=== PATIENT | female | born 1955 | race Caucasian/White ===

== ENCOUNTER → 2017-03-19 00:28 | Emergency (ER) | payer BC ==
[~2017-03-19 00:28] MED LIST: Morphine INJ* 2 MG/ML 1 ML SYRINGE IV ONE; NS 0.9% 1000 ML* 1,000 ML IV ONE; diPHENhydraMINE IV* 50 MG/ML 1 ml VIAL (BENADRYL) IV ONE
--- NOTE | 2017-03-19 00:48 | ED ---
darrick Simeon Timothy, scribed for Sam Huber MD on 03/19/17 at 0043 . Abdominal Pain/Female - HPI Summary HPI Summary: Ange Antoine is a 61 yo female presenting to [facility] with 10/10 right abd pain since 0800 03/18/17. 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 She states her pain increases with movement and position change. She states her appetite today has not been great. She has self-medicated with tylenol today. Her MHx includes HLD, angina, HTN, fibromyalgia, asthma, GERD, cholecystectomy, hysterectomy, DMII, anemia, depression, anxiety. - History of Current Complaint Chief Complaint: EDAbdPain Stated Complaint: RIGHT SIDE PAIN Time Seen by Provider: 03/19/17 00:29 Hx Obtained From: Patient Onset/Duration: Gradual Onset, Lasting Hours, Still Present, Worse Since - now Timing: Constant Severity Initially: Moderate Severity Currently: Moderate Pain Intensity: 10 Pain Scale Used: 0-10 Numeric Location: Discrete At: RUQ, Discrete At: RLQ Radiates: No Aggravating Factor(s): Movement, Deep Breaths Associated Signs and Symptoms: Positive: Other: - change in appetite Allergies/Adverse Reactions: Allergies Allergy/AdvReac Type Severity Reaction Status Date / Time Procaine [From Novocain] Allergy Severe N/V, Verified 09/26/16 13:38 SYNCOPE contrast dyes Allergy Severe Hives Uncoded 09/26/16 13:38 PMH/Surg Hx/FS Hx/Imm Hx Endocrine/Hematology History: Reports: Hx Diabetes - TYPE II- ORAL MEDICATION AND INSULIN FOR, Hx Thyroid Disease - ON MEDICATION FOR, Hx Anemia - HX OF Cardiovascular History: Reports: Hx Angina, Hx Hypercholesterolemia, Hx Hypertension - ON MEDICATION FOR, Other Cardiovascular Problems/Disorders - ELEVATED CHOLESTEROL Denies: Hx Pacemaker/ICD Respiratory History: Reports: Hx Asthma - ROUTINE AND PRN INHALER Denies: Hx Chronic Obstructive Pulmonary Disease (COPD), Other Respiratory Problems/Disorders GI History: Reports: Hx Gastroesophageal Reflux Disease - ON MEDICATION FOR History: Denies: Hx Renal Disease Musculoskeletal History: Reports: Hx Arthritis - FINGERS Sensory History: Reports: Hx Cataracts - RIGHT EYE, Hx Contacts or Glasses - GLASSES Denies: Hx Hearing Aid Opthamlomology History: Reports: Hx Cataracts - RIGHT EYE, Hx Contacts or Glasses - GLASSES Neurological History: Reports: Hx Headaches - INDUCED BY STRESS- WEEKLY-TREATS WITH HYDROCODONE, Other Neuro Impairments/Disorders - FIBROMYLAGIA Psychiatric History: Reports: Hx Anxiety - ON MEDICATION FOR, Hx Depression - ON MEDICATION FOR Denies: Hx Panic Disorder - Cancer History Hx Chemotherapy: No Hx Radiation Therapy: No - Surgical History Surgery Procedure, Year, and Place: cysts removed bilat feet [facility]. knee L bone spurs [facility]. hyste[facility]. [facility]. APPENDECTOMY. RIGHT AND LEFT KNEE REPAIR OF CARTILAGE Hx Anesthesia Reactions: No Infectious Disease History: No Infectious Disease History: Denies: Hx Clostridium Difficile, Hx Hepatitis, Hx Human Immunodeficiency Virus (HIV), Hx of Known/Suspected MRSA, Hx Shingles, Hx Tuberculosis, History Other Infectious Disease, Traveled Outside the in Last 30 Days - Family History Known Family History: Positive: Cardiac Disease - FATHER HAD 10 MIs BEFORE PASSING AWAY, Hypertension, Diabetes - Social History Alcohol Use: Occasionally Hx Substance Use: No Substance Use Type: Reports: None Hx Tobacco Use: No Smoking Status (MU): Former Smoker Amount Used/How Often: 2 PPD X 25 YEARS Length of Time of Smoking/Using Tobacco: 20 yrs Have You Smoked in the Last Year: No Review of Systems Constitutional: Negative Eyes: Negative ENT: Negative Cardiovascular: Negative Respiratory: Negative Positive: Abdominal Pain, Other - change in appetite Genitourinary: Negative Musculoskeletal: Negative Skin: Negative Neurological: Negative Psychological: Normal All Other Systems Reviewed And Are Negative: Yes Physical Exam Triage Information Reviewed: Yes Vital Signs On Initial Exam: Initial Vitals Temp Pulse Resp BP Pulse Ox 98.5 F 111 20 157/80 98 03/19/17 00:31 03/19/17 00:31 03/19/17 00:31 03/19/17 00:31 03/19/17 00:31 Vital Signs Reviewed: Yes Appearance: Positive: Well-Appearing, Pain Distress - mild lower abd tenderness Skin: Positive: Warm Head/Face: Positive: Normal Head/Face Inspection Eyes: Positive: DIMITRY ENT: Positive: Hearing grossly normal Neck: Positive: Supple Cardiovascular: Positive: RRR Abdomen Description: Positive: No Organomegaly, Soft, Other: - mild diffuse lower abd tenderness rt>lt. Negative: Distended, Guarding Bowel Sounds: Positive: Present Musculoskeletal: Positive: Strength/ROM Intact Neurological: Positive: Alert, Oriented to Person Place, Time Psychiatric: Positive: Affect/Mood Appropriate Diagnostics - Vital Signs Vital Signs Temp Pulse Resp BP Pulse Ox 03/19/17 00:31 98.5 F 111 20 157/80 98 - Laboratory Result Diagrams: 03/19/17 00:50 03/19/17 00:50 Lab Statement: Any lab studies that have been ordered have been reviewed, and results considered in the medical decision making process. - CT A/P CT Interpretation: No Acute Changes - Impression: Mild fullness of the right renal collecting system and proximal right ureter may be physiologic or may be slightly pathologically distended. No obstructing calculus seen. No inflammatory process identified in the abdomen or pelvis. No abd mass, adenopathy, or collection seen. 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 In the ED course she received morphine for pain control, benadryl, and IV fluids. Her CT A/P suggests mild fullness of the right renal collecting system and proximal right ureter may be physiologic or may be slightly pathologically distended. No obstructing calculus seen. No inflammatory process identified in the abdomen or pelvis. No abd mass, adenopathy, or collection seen. After clinical examination and review of her lab and imaging studies, she will be discharged home with abd pain with appropriate instructions. - Diagnoses Provider Diagnoses: Abdominal pain Discharge - Discharge Plan Condition: Stable Disposition: HOME Patient Education Materials: Acute Abdominal Pain (ED) Referrals: Arianna Cain MD [Primary Care Provider] - 2 Days Additional Instructions: Please follow up with your primary care physician regarding your visit to the emergency department today. Return to the emergency department with any new or recurring symptoms. The documentation as recorded by the darrick draper Timothy accurately reflects the service I personally performed and the decisions made by , Sam Huber MD.
[2017-03-19 01:04] LABS: Hematocrit 37 % (35-47); Hemoglobin 12.7 g/dl (12.0-16.0); Mean Corpuscular HGB Conc 34 g/dl (31-36); Mean Corpuscular Hemoglobin 29 pg (27-31); Mean Corpuscular Volume 85 fL (80-97); Mean Platelet Volume 7 um3 (7.4-10.4); Red Blood Count 4.38 10^6/ul (4.0-5.4); Red Cell Distribution Width 13 % (10.5-15); White Blood Count 10.5 10^3/ul (3.5-10.8)
[2017-03-19 01:22] LABS: ALT 21 U/L (7-52); AST 23 U/L (13-39); Albumin 4.5 g/dL (3.2-5.2); Alkaline Phosphatase 64 U/L (34-104); Anion Gap 10 mmol/L (2-11); Blood Urea Nitrogen 12 mg/dL (6-24); CO2 Carbon Dioxide 25 mmol/L (22-32); Calcium 10.2 mg/dL (8.6-10.3); Chloride 96 mmol/L (101-111); EGFR African American 123.6 (>60); EGFR Non-African American 96.1 (>60); Globulin 3.3 g/dL (2-4); Glucose 261 mg/dL (70-100); Lipase < 10 U/L (11.0-82.0); Magnesium 1.8 mg/dL (1.9-2.7); Potassium 3.9 mmol/L (3.5-5.0); Sodium 131 mmol/L (133-145); Total Protein 7.8 g/dL (6.4-8.9)
[2017-03-19 03:21] LABS: Urine Bilirubin Negative (Negative); Urine Glucose 2+(150 mg/dL) (Negative); Urine Nitrite Negative (Negative)
[2017-03-19 03:39] VITALS: BP 161/69
--- NOTE | 2017-03-19 08:00 | RAD ---
CLINICAL HISTORY: Lower abdominal pain. Relevant surgical history includes appendectomy, hysterectomy and cholecystectomy. COMPARISON: CT of the chest and abdomen dated October 21, 2013 TECHNIQUE: Oral contrast only CT examination of the abdomen and pelvis from the lung bases through the initial tuberosities. FINDINGS: VISUALIZED LUNG BASES: The visualized lung bases are grossly clear. There is no pleural effusion. ABDOMEN AND PELVIS: Evaluation of the solid organs and vasculature is limited without intravenous contrast. The liver is homogenously hypodense and enlarged measuring 21.4 cm in the cephalocaudal projection. The spleen, pancreas and adrenal glands are grossly normal in appearance. The gallbladder is normal. There is the appearance of fullness of the right renal collecting system but no luisana hydronephrosis or renal calculi identified in either renal collecting system, ureter or urinary bladder. There is also right greater than left perinephric stranding but this appearance is similar to the 2014 CT examination. The oral contrast has progressed as far as the midportion small bowel. There is a appearance of thickening of the second portion of the duodenum up to 1.2 cm in thickness (axial image 41) that extends to the junction with the jejunum. The small and large bowel are not distended.The patient's normal appendix is identified in the right lower quadrant. There is no gross retroperitoneal or mesenteric lymphadenopathy. The uterus is surgically absent. The mildly calcified abdominal aorta and iliac arteries are normal in course and diameter. Degenerative changes include multilevel loss of intervertebral disc height involving the lower thoracic and lumbar spine.There are no sinister bone lesions. IMPRESSION: 1. Mild fullness of the right renal collecting system without luisana hydronephrosis or identification of renal calculi bilaterally. 2. There appears to be circumferential wall thickening of the second portion of the duodenum extending to the junction with the jejunum. Please correlate to symptoms of duodenitis. 3. Hepatic steatosis and hepatomegaly similar to the previous CT examination. Please correlate to LFTs. 4. Additional chronic, degenerative and iatrogenic findings described in the body of the report.
== END | disposition home or self-care (01) ==
LOC: ED 00:28
DX: R10.11 Right upper quadrant pain (principal); R10.31 Right lower quadrant pain; E11.9 Type 2 diabetes mellitus without complications; Z79.4 Long term (current) use of insulin; Z79.84 Long term (current) use of oral hypoglycemic drugs; E07.9 Disorder of thyroid, unspecified; E78.00 Pure hypercholesterolemia, unspecified; I10 Essential (primary) hypertension; J45.909 Unspecified asthma, uncomplicated; K21.9 Gastro-esophageal reflux disease without esophagitis; F41.9 Anxiety disorder, unspecified; F32.9 Major depressive disorder, single episode, unspecified; Z90.710 Acquired absence of both cervix and uterus; Z90.49 Acquired absence of other specified parts of digestive tract; Z88.4 Allergy status to anesthetic agent; Z91.041 Radiographic dye allergy status; Z87.891 Personal history of nicotine dependence
CPT/HCPCS: 36415; 74176; 80053; 81003; 83605; 83690; 83735; 85025; 86140; 96361; 96374; 96375; 99282; J1200; J2270

== ENCOUNTER 2017-03-20 14:47 | Emergency (ER) | payer BC ==
[2017-03-20] MEDS ORDERED: NS 0.9% 1000 ML* 1,000 ML IV ONE (15:47)
[2017-03-20] MEDS ORDERED: HYDROmorphone* 1 MG/ML 1 ML SYR IV ONE (15:47)
[2017-03-20] MEDS ORDERED: Sucralfate TAB* 1 GM PO ONE (15:47)
[2017-03-20] MEDS ORDERED: Ondansetron INJ* 2 MG/ML VIAL IV ONE (15:47)
[2017-03-20] MEDS ORDERED: Pantoprazole IV* 40 MG IV ONE (15:47)
[2017-03-20 16:39] LABS: Hematocrit 39 % (35-47); Hemoglobin 13.2 g/dl (12.0-16.0); Mean Corpuscular HGB Conc 34 g/dl (31-36); Mean Corpuscular Hemoglobin 29 pg (27-31); Mean Corpuscular Volume 85 fL (80-97); Mean Platelet Volume 7 um3 (7.4-10.4); Red Cell Distribution Width 13 % (10.5-15); White Blood Count 9.5 10^3/ul (3.5-10.8)
[2017-03-20 16:44] LABS: Urine Bacteria 1+ (Absent); Urine Bilirubin Negative (Negative); Urine Glucose 3+(>=500 mg/dL) (Negative); Urine Nitrite Negative (Negative)
[2017-03-20 16:56] LABS: ALT 22 U/L (7-52); AST 29 U/L (13-39); Albumin 4.5 g/dL (3.2-5.2); Alkaline Phosphatase 63 U/L (34-104); Anion Gap 9 mmol/L (2-11); BUN/Creatinine Ratio 15.5 (8-20); Blood Urea Nitrogen 11 mg/dL (6-24); C Reactive Protein 83.14 mg/L (< 5.00); CO2 Carbon Dioxide 29 mmol/L (22-32); Chloride 94 mmol/L (101-111); EGFR African American 107.6 (>60); EGFR Non-African American 83.7 (>60); Globulin 3.6 g/dL (2-4); Glucose 182 mg/dL (70-100); Lipase < 10 U/L (11.0-82.0); Potassium 3.4 mmol/L (3.5-5.0); Sodium 132 mmol/L (133-145); Total Protein 8.1 g/dL (6.4-8.9)
--- NOTE | 2017-03-20 18:52 | RAD ---
HISTORY: Redness and swelling COMPARISONS: CT dated March 19, 2017 TECHNIQUE: Multiple transverse and longitudinal ultrasound images were obtained of the area of clinical abnormality in the back using grayscale and color Doppler measuring FINDINGS: There is hyperemia of the subcutaneous fat. There is no loculated fluid collection. IMPRESSION: HYPEREMIA, WITHOUT LOCULATED FLUID COLLECTION TO SUGGEST ABSCESS
[2017-03-20 19:21] VITALS: BP 149/71
--- NOTE | 2017-03-21 09:34 | ED ---
Yordan Simeon Salem, scribed for Velasquez Collado MD on 03/20/17 at 1538 . Abdominal Pain/Female - HPI Summary HPI Summary: Patient is a 61 y/o F who presents to the ED with constant RUQ pain for the past 2 days. Pt was in the ED early yesterday for the same sx. She states she received Morphine while she was here, but was not given medication to take home. Pain has not improved since this past visit. Pt also has an abscess on her back. 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 Her PMHx/PSHx is significant for GERD, cholecystectomy, and hysterectomy. - History of Current Complaint Chief Complaint: EDAbdPain Stated Complaint: LOWER ABD PAIN Time Seen by Provider: 03/20/17 14:49 Hx Obtained From: Patient Onset/Duration: Gradual Onset, Lasting Days, Still Present Timing: Constant Severity Initially: Moderate Severity Currently: Moderate Pain Intensity: 9 Pain Scale Used: 0-10 Numeric Location: Discrete At: RUQ Radiates: No Character: Sharp Aggravating Factor(s): Movement Alleviating Factor(s): Position Associated Signs and Symptoms: Positive: Negative Allergies/Adverse Reactions: Allergies Allergy/AdvReac Type Severity Reaction Status Date / Time Procaine [From Novocain] Allergy Severe N/V, Verified 09/26/16 13:38 SYNCOPE contrast dyes Allergy Severe Hives Uncoded 09/26/16 13:38 PMH/Surg Hx/FS Hx/Imm Hx Endocrine/Hematology History: Reports: Hx Diabetes - TYPE II- ORAL MEDICATION AND INSULIN FOR, Hx Thyroid Disease - ON MEDICATION FOR, Hx Anemia - HX OF Cardiovascular History: Reports: Hx Angina, Hx Hypercholesterolemia, Hx Hypertension - ON MEDICATION FOR, Other Cardiovascular Problems/Disorders - ELEVATED CHOLESTEROL Denies: Hx Pacemaker/ICD Respiratory History: Reports: Hx Asthma - ROUTINE AND PRN INHALER Denies: Hx Chronic Obstructive Pulmonary Disease (COPD), Other Respiratory Problems/Disorders GI History: Reports: Hx Gastroesophageal Reflux Disease - ON MEDICATION FOR History: Denies: Hx Renal Disease Musculoskeletal History: Reports: Hx Arthritis - FINGERS Sensory History: Reports: Hx Cataracts - RIGHT EYE, Hx Contacts or Glasses - GLASSES Denies: Hx Hearing Aid Opthamlomology History: Reports: Hx Cataracts - RIGHT EYE, Hx Contacts or Glasses - GLASSES Neurological History: Reports: Hx Headaches - INDUCED BY STRESS- WEEKLY-TREATS WITH HYDROCODONE, Other Neuro Impairments/Disorders - FIBROMYLAGIA Psychiatric History: Reports: Hx Anxiety - ON MEDICATION FOR, Hx Depression - ON MEDICATION FOR Denies: Hx Panic Disorder - Cancer History Hx Chemotherapy: No Hx Radiation Therapy: No - Surgical History Surgery Procedure, Year, and Place: cysts removed bilat feet [facility]. knee L bone spurs removed [facility]. hysterectomy [facility]. [facility]. APPENDECTOMY. RIGHT AND LEFT KNEE REPAIR OF CARTILAGE Hx Anesthesia Reactions: No Infectious Disease History: No Infectious Disease History: Denies: Hx Clostridium Difficile, Hx Hepatitis, Hx Human Immunodeficiency Virus (HIV), Hx of Known/Suspected MRSA, Hx Shingles, Hx Tuberculosis, History Other Infectious Disease, Traveled Outside the [place] in Last 30 Days - Family History Known Family History: Positive: Cardiac Disease - FATHER HAD 10 MIs BEFORE PASSING AWAY, Hypertension, Diabetes - Social History Alcohol Use: Occasionally Hx Substance Use: No Substance Use Type: Reports: None Hx Tobacco Use: No Smoking Status (MU): Former Smoker Amount Used/How Often: 2 PPD X 25 YEARS Length of Time of Smoking/Using Tobacco: 20 yrs Have You Smoked in the Last Year: No Review of Systems Negative: Fever Positive: Abdominal Pain - RUQ. Positive: Other - Abscess on her back. All Other Systems Reviewed And Are Negative: Yes Physical Exam Triage Information Reviewed: Yes Vital Signs On Initial Exam: Initial Vitals Temp Pulse Resp BP Pulse Ox 96.8 F 107 20 167/70 98 03/20/17 14:51 03/20/17 14:51 03/20/17 14:51 03/20/17 14:51 03/20/17 14:51 Vital Signs Reviewed: Yes Appearance: Positive: Well-Appearing, No Pain Distress, Obese Skin: Positive: Warm, Skin Color Reflects Adequate Perfusion, Dry Head/Face: Positive: Normal Head/Face Inspection Eyes: Positive: Normal Neck: Positive: Supple, Nontender Respiratory/Lung Sounds: Positive: Clear to Auscultation, Breath Sounds Present Cardiovascular: Positive: RRR Abdomen Description: Positive: Other: - 8-10cm erythematous area on back with stab center of about 1cm. Tender in epigastrium and RUQ. Musculoskeletal: Positive: Normal Neurological: Positive: Normal Psychiatric: Positive: Normal, Affect/Mood Appropriate Diagnostics - Vital Signs Vital Signs Temp Pulse Resp BP Pulse Ox 03/20/17 14:51 96.8 F 107 20 167/70 98 - Laboratory Lab Results: Lab Results 03/20/17 03/20/17 03/20/17 Range/Units 16:10 16:10 16:10 WBC 9.5 (3.5-10.8) 10^3/ul RBC 4.60 (4.0-5.4) 10^6/ul Hgb 13.2 (12.0-16.0) g/dl Hct 39 (35-47) % MCV 85 (80-97) fL MCH 29 (27-31) pg MCHC 34 (31-36) g/dl RDW 13 (10.5-15) % Plt Count 319 (150-450) 10^3/ul MPV 7 L (7.4-10.4) um3 Neut % (Auto) 64.8 (38-83) % Lymph % (Auto) 21.8 L (25-47) % [place] % (Auto) 12.6 H (1-9) % Eos % (Auto) 0.5 (0-6) % Baso % (Auto) 0.3 (0-2) % Absolute Neuts (auto) 6.2 (1.5-7.7) 10^3/ul Absolute Lymphs (auto) 2.1 (1.0-4.8) 10^3/ul Absolute Monos (auto) 1.2 H (0-0.8) 10^3/ul Absolute Eos (auto) 0.1 (0-0.6) 10^3/ul Absolute Basos (auto) 0 (0-0.2) 10^3/ul Absolute Nucleated RBC 0 10^3/ul Nucleated RBC % 0 Sodium 132 L (133-145) mmol/L Potassium 3.4 L (3.5-5.0) mmol/L Chloride 94 L (101-111) mmol/L Carbon Dioxide 29 (22-32) mmol/L Anion Gap 9 (2-11) mmol/L BUN 11 (6-24) mg/dL Creatinine 0.71 (0.51-0.95) mg/dL Est GFR ( Amer) 107.6 (>60) Est GFR (Non-Af Amer) 83.7 (>60) BUN/Creatinine Ratio 15.5 (8-20) Glucose 182 H (70-100) mg/dL Lactic Acid (0.5-2.0) mmol/L Calcium 10.0 (8.6-10.3) mg/dL Total Bilirubin 0.50 (0.2-1.0) mg/dL AST 29 (13-39) U/L ALT 22 (7-52) U/L Alkaline Phosphatase 63 (34-104) U/L C-Reactive Protein 83.14 H (< 5.00) mg/L Total Protein 8.1 (6.4-8.9) g/dL Albumin 4.5 (3.2-5.2) g/dL Globulin 3.6 (2-4) g/dL Albumin/Globulin Ratio 1.3 (1-3) Lipase < 10 L (11.0-82.0) U/L Urine Color Yellow Urine Appearance Cloudy Urine pH 5.0 (5-9) Ur Specific [place] 1.020 (1.010-1.030) Urine Protein 1+(30 mg/dl) H (Negative) Urine Ketones Negative (Negative) Urine Blood Negative (Negative) Urine Nitrate Negative (Negative) Urine Bilirubin Negative (Negative) Urine Urobilinogen Negative (Negative) Ur Leukocyte Esterase Negative (Negative) Urine WBC (Auto) Absent (Absent) Urine RBC (Auto) Absent (Absent) Ur Squamous Epith Cells Present H (Absent) Urine Bacteria 1+ H (Absent) Hyaline Casts Present H (Absent) Urine Glucose 3+(>=500 mg/dl) H (Negative) 03/20/17 Range/Units 16:10 WBC (3.5-10.8) 10^3/ul RBC (4.0-5.4) 10^6/ul Hgb (12.0-16.0) g/dl Hct (35-47) % MCV (80-97) fL MCH (27-31) pg MCHC (31-36) g/dl RDW (10.5-15) % Plt Count (150-450) 10^3/ul MPV (7.4-10.4) um3 Neut % (Auto) (38-83) % Lymph % (Auto) (25-47) % [place] % (Auto) (1-9) % Eos % (Auto) (0-6) % Baso % (Auto) (0-2) % Absolute Neuts (auto) (1.5-7.7) 10^3/ul Absolute Lymphs (auto) (1.0-4.8) 10^3/ul Absolute Monos (auto) (0-0.8) 10^3/ul Absolute Eos (auto) (0-0.6) 10^3/ul Absolute Basos (auto) (0-0.2) 10^3/ul Absolute Nucleated RBC 10^3/ul Nucleated RBC % Sodium (133-145) mmol/L Potassium (3.5-5.0) mmol/L Chloride (101-111) mmol/L Carbon Dioxide (22-32) mmol/L Anion Gap (2-11) mmol/L BUN (6-24) mg/dL Creatinine (0.51-0.95) mg/dL Est GFR ( Amer) (>60) Est GFR (Non-Af Amer) (>60) BUN/Creatinine Ratio (8-20) Glucose (70-100) mg/dL Lactic Acid 1.6 (0.5-2.0) mmol/L Calcium (8.6-10.3) mg/dL Total Bilirubin (0.2-1.0) mg/dL AST (13-39) U/L ALT (7-52) U/L Alkaline Phosphatase (34-104) U/L C-Reactive Protein (< 5.00) mg/L Total Protein (6.4-8.9) g/dL Albumin (3.2-5.2) g/dL Globulin (2-4) g/dL Albumin/Globulin Ratio (1-3) Lipase (11.0-82.0) U/L Urine Color Urine Appearance Urine pH (5-9) Ur Specific [place] (1.010-1.030) Urine Protein (Negative) Urine Ketones (Negative) Urine Blood (Negative) Urine Nitrate (Negative) Urine Bilirubin (Negative) Urine Urobilinogen (Negative) Ur Leukocyte Esterase (Negative) Urine WBC (Auto) (Absent) Urine RBC (Auto) (Absent) Ur Squamous Epith Cells (Absent) Urine Bacteria (Absent) Hyaline Casts (Absent) Urine Glucose (Negative) Result Diagrams: 03/20/17 16:10 03/20/17 16:10 Lab Statement: Any lab studies that have been ordered have been reviewed, and results considered in the medical decision making process. - Ultrasound No standard instances Ultrasound Interpretation Completed By: Radiologist - US SOFT TISSUE HEAD OR NECK IMPRESSION: HYPEREMIA, WITHOUT LOCULATED FLUID COLLECTION TO SUGGEST ABSCESS Re-Evaluation - Re-Evaluation First Eval Re-Evaluation Time: 18:39 Comment: Re-evaluated pt. Second Eval Re-Evaluation Time: 19:02 Comment: Informed pt of plan. She is agreeable. Abdominal Pain Fem Course/Dx - Course Course Of Treatment: Ms. Antoine presented after having gone to F/U in Dr. Cain 's office. She was still C/O pain and was not taking any pain medicines. She also was worried about a possible abscess on her back. She had been diagnosed by U/S with duodenitis on her previous ED visit on the wee hours of 03/19 although she was not apparently aware of the diagnosis. I rechecked her labs and they were essentially the same with WBCs WNL and her CRP up a bit. I discussed it with Dr. Mast and he recommended close GI F/U and sucralfate. She got a lot of relief here in the ED with a small amount of pain medication. An U/S of her cellulitic are on her back showed no abscess and I will treat her with keflex. - Diagnoses Provider Diagnoses: Duodenitis, Cellulitis - Provider Notifications Discussed Care Of Patient With: Arianna Cain Time Discussed With Above Provider: 15:00 - Also, Dr. Mast (GI) @ [phone]. Discussed case. Pt will follow up with him. Instructed by Provider To: Other Admit/Transition Orders Completed By ED Provider: No Discharge - Discharge Plan Condition: Stable Disposition: HOME Prescriptions: Cephalexin CAP* [Keflex CAP*] 500 mg PO QID #40 cap Sucralfate TAB* [Carafate*] 1 gm PO QID #40 tab Patient Education Materials: Cellulitis (ED), Epigastric Pain (ED) Referrals: Marshall Mast MD [Medical Doctor] - Additional Instructions: Please follow up with Dr. Mast. The documentation as recorded by the Yordan draper Salem accurately reflects the service I personally performed and the decisions made by me, Velasquez Collado MD.
== END 2017-03-20 19:20 | disposition home or self-care (01) ==
LOC: ED 14:47
DX: L03.90 Cellulitis, unspecified (principal); R10.11 Right upper quadrant pain; Z87.891 Personal history of nicotine dependence
CPT/HCPCS: 36415; 76536; 80053; 81003; 81015; 83605; 83690; 85025; 86140; 87086; 96374; 96375; 99284; A9270-GY; J1170; J2405

== ENCOUNTER 2018-02-17 06:15 | Day surgery (SDC) | payer BC ==
[~2018-02-17 06:15] MED LIST changes: +Acetaminophen TAB* 325 MG PO PRN; +Buffered Lidocaine 0.9% SYRIN* 5 ML/SYR SYRINGE INTRADERM ONE; -Morphine INJ* 2 MG/ML 1 ML SYRINGE IV ONE; -NS 0.9% 1000 ML* 1,000 ML IV ONE; -diPHENhydraMINE IV* 50 MG/ML 1 ml VIAL (BENADRYL) IV ONE
[2018-02-17] MEDS ORDERED: Midazolam* 1 MG/ML 2 ML VIAL (2 MG) ONE (07:24)
[2018-02-17 08:50] VITALS: BP 121/63
[2018-02-17] MEDS ORDERED: Ketorolac 0.5% OPHTH (NF) 0.5 % 5 ML BTL ONE (09:06)
[2018-02-17] MEDS ORDERED: Proparacaine 0.5% OPHTH.SOL* 15 ML BTL ONE (09:06)
[2018-02-17] MEDS ORDERED: Neomycin/Polymy/Dex OPTH.SUSP* MAXITROL 0.1% 5 ML ONE (09:06)
[2018-02-17] MEDS ORDERED: Phenylephrine 2.5% OPTH.SOL* 2 ML BTL ONE (09:06)
[2018-02-17] MEDS ORDERED: Povidone Iodine 5% OPTH* 30 ML BTL ONE (09:06)
[2018-02-17] MEDS ORDERED: acetaZOLAMIDE TAB* 250 MG ONE (09:06)
[2018-02-17] MEDS ORDERED: Lidocaine 1% MPF* 2 ML VIAL ONE (09:06)
[2018-02-17] MEDS ORDERED: Lidocaine 2% EPI 1:200000 MPF*10-20 ML VIAL ONE (09:06)
[2018-02-17] MEDS ORDERED: Cyclopentolate 1% OPTH.SOL* 2 ML BTL ONE (09:06)
--- NOTE | 2018-02-17 22:11 | OP ---
DATE OF OPERATION: 02/17/18 [facility] DATE OF : 55 SURGEON: Tyson Hutchinson MD PREOPERATIVE DIAGNOSIS: Cataract, right eye. POSTOPERATIVE DIAGNOSIS: Cataract, right eye. OPERATIVE PROCEDURE: Extracapsular cataract extraction with intraocular lens implant, right eye. DESCRIPTION OF PROCEDURE: The patient was brought to the operating room after being given 1/2% Alcaine with epinephrine drops in the preoperative area. The eye was prepped and draped in the usual sterile fashion. Sterile drape and eyelid speculum were placed. Again, topical 1/2% Alcaine with epinephrine was given. A paracentesis incision was made at the 9 o'clock position with the No.75 blade. Clear cornea incision 2.2 x 2.2-mm was created at the 12 o'clock position starting at the anterior limbus using the 2.2-mm keratome. The anterior chamber was irrigated with 0.4 mL of 1% non-preservative intracameral lidocaine and filled with DisCoVisc. A capsulorrhexis was completed using the cystotome and the Utrata forceps. Hydrodissection was performed with balanced salt solution. The lens nucleus was removed with the Phacoemulsification handpiece without incident. Cortex was removed with the irrigation-aspiration handpiece. The capsular bag was re-inflated using DisCoVisc and an [id number] implant was inserted with the shooter oriented to 171 degrees. Horizontal reference lipscomb were made with the patient in a seated position in the preoperative area. The irrigation-aspiration handpiece was used to remove all residual DisCoVisc. The eye was refilled with balanced salt solution and the wound checked and found to be watertight. Topical Maxitrol drops were given. [id number]/[facility] #: [id number] [facility]
== END 2018-02-17 08:42 | disposition home or self-care (01) ==
LOC: OREAST 06:15
PROVIDERS: ATTEND Specialist
DX: H25.811 Combined forms of age-related cataract, right eye (principal); E11.3293 Type 2 diabetes mellitus with mild nonproliferative diabetic retinopathy without macular edema, bilateral; Z79.4 Long term (current) use of insulin; Z79.84 Long term (current) use of oral hypoglycemic drugs; Z87.891 Personal history of nicotine dependence; I10 Essential (primary) hypertension; E78.5 Hyperlipidemia, unspecified; E03.9 Hypothyroidism, unspecified; R06.9 Unspecified abnormalities of breathing; Z79.899 Other long term (current) drug therapy; M06.9 Rheumatoid arthritis, unspecified
CPT/HCPCS: A9270-GY; J2250; V2787

== ENCOUNTER 2018-02-24 06:17 | Day surgery (SDC) | payer BC ==
[2018-02-24] MEDS ORDERED: Insulin LISPRO* 1 UNITS UNIT SUBCUT ONE (07:19)
[2018-02-24] MEDS ORDERED: Midazolam* 1 MG/ML 2 ML VIAL (2 MG) ONE (07:30)
[2018-02-24 08:09] VITALS: BP 132/65
[2018-02-24] MEDS ORDERED: Povidone Iodine 5% OPTH* 30 ML BTL ONE (12:16)
[2018-02-24] MEDS ORDERED: Ketorolac 0.5% OPHTH (NF) 0.5 % 5 ML BTL ONE (12:16)
[2018-02-24] MEDS ORDERED: Lidocaine 1% MPF* 2 ML VIAL ONE (12:16)
[2018-02-24] MEDS ORDERED: Neomycin/Polymy/Dex OPTH.SUSP* MAXITROL 0.1% 5 ML ONE (12:16)
[2018-02-24] MEDS ORDERED: acetaZOLAMIDE TAB* 250 MG ONE (12:16)
[2018-02-24] MEDS ORDERED: Phenylephrine 2.5% OPTH.SOL* 2 ML BTL ONE (12:16)
[2018-02-24] MEDS ORDERED: Lidocaine 2% EPI 1:200000 MPF*10-20 ML VIAL ONE (12:16)
[2018-02-24] MEDS ORDERED: Cyclopentolate 1% OPTH.SOL* 2 ML BTL ONE (12:16)
[2018-02-24] MEDS ORDERED: Proparacaine 0.5% OPHTH.SOL* 15 ML BTL ONE (12:16)
--- NOTE | 2018-02-25 05:09 | OP ---
DATE OF OPERATION: 02/24/18 [facility] DATE OF : 55 SURGEON: Tyson Hutchinson MD PREOPERATIVE DIAGNOSIS: Cataract, left eye. POSTOPERATIVE DIAGNOSIS: Cataract, left eye. OPERATIVE PROCEDURE: Extracapsular cataract extraction with intraocular lens implant, left eye. DESCRIPTION OF PROCEDURE: The patient was brought to the operating room after being given 1/2% Alcaine with epinephrine drops in the preoperative area. The eye was prepped and draped in the usual sterile fashion. Sterile drape and eyelid speculum were placed. Again, topical 1/2% Alcaine with epinephrine was given. A paracentesis incision was made at the 3 o'clock position with the No.75 blade. Clear cornea incision 2.2 x 2.2-mm was created at the 6 o'clock position starting at the anterior limbus using the 2.2-mm keratome. The anterior chamber was irrigated with 0.4 mL of 1% non-preservative intracameral lidocaine and filled with DisCoVisc. A capsulorrhexis was completed using the cystotome and the Utrata forceps. Hydrodissection was performed with balanced salt solution. The lens nucleus was removed with the Phacoemulsification handpiece without incident. Cortex was removed with the irrigation-aspiration handpiece. The capsular bag was re-inflated using DisCoVisc and an [id number] implant was inserted with the shooter. The irrigation-aspiration handpiece was used to remove all residual DisCoVisc. The eye was refilled with balanced salt solution and the wound checked and found to be watertight. Topical Maxitrol drops were given. [id number]/[facility] #: [id number] [facility]
== END 2018-02-24 08:10 | disposition home or self-care (01) ==
LOC: OREAST 06:17
PROVIDERS: ATTEND Specialist
DX: H25.812 Combined forms of age-related cataract, left eye (principal); I10 Essential (primary) hypertension; E03.9 Hypothyroidism, unspecified; E11.9 Type 2 diabetes mellitus without complications; E78.00 Pure hypercholesterolemia, unspecified; Z96.1 Presence of intraocular lens
CPT/HCPCS: A9270-GY; J2250; V2632

== ENCOUNTER 2018-05-28 10:49 | Day surgery (SDC) | payer BC ==
--- NOTE | 2018-05-20 15:07 | HP ---
PREOP HISTORY AND PHYSICAL: DATE OF ADMISSION: 05/28/18 [facility] CHIEF COMPLAINT: Left hand pain, numbness, and tingling. HISTORY OF PRESENT ILLNESS: Ange is a 63-year-old female with long-term diabetes, who has history of trigger fingers and carpal tunnel syndrome. She has had trigger finger releases on the right hand with good relief. She now presents for trigger finger releases on the left hand and carpal tunnel release. All fingers were involved in the triggering except the left thumb. PAST MEDICAL HISTORY: Diabetes, hypertension, asthma, rheumatoid arthritis, reflux, and hypothyroidism. PAST SURGICAL HISTORY: Appendectomy, hysterectomy, cholecystectomy, cyst removal from the foot, carpal tunnel and trigger release on the right hand, and cataract surgery. MEDICATIONS: 1. Humalog insulin. 2. Advair. 3. Amlodipine. 4. Atorvastatin. 5. Bupropion XL. 6. Duloxetine. 7. Fish oil. 8. Folic acid. 9. Gemfibrozil. 10. Levothyroxine. 11. Losartan and hydrochlorothiazide. 12. Metformin. 13. Multivitamin. 14. Omeprazole. 15. Prednisone. 16. Toujeo. 17. Trazodone. 18. Ventolin. 19. Vitamin B12. 20. Vitamin D. ALLERGIES: She is allergic to IODINATED CONTRAST, which causes hives and NOVOCAINE, which causes nausea. FAMILY HISTORY: Heart disease, diabetes, hypertension, bile duct cancer. 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 She quit smoking 3 years ago, seldom uses alcohol. Denies illicit drug use. REVIEW OF SYSTEMS: Positive for occasional night sweats, headaches, hypertension, reflux, numbness, anxiety, depression, diabetes, thyroid disease. Negative for skin, , hematologic, and ID symptoms. She has no history of MRSA, hepatitis C, or HIV. PHYSICAL EXAMINATION GENERAL: She is a healthy-appearing, very pleasant, 63-year-old female, in no acute distress. VITAL SIGNS: Her height is 66 inches, weight 206, pulse 88, respirations 18, temperature is 97.4. HEENT: Unremarkable. NECK: She has good range of motion of her neck without pain. No masses are palpated. PULMONARY: Good inspiratory effort. No wheezing. Clear to auscultation. CARDIAC: Regular rate and rhythm. No murmurs. ABDOMEN: Soft and nontender. NEUROLOGIC: She is alert and oriented without focal deficit. PERIPHERAL VASCULAR: She has palpable pulses. No peripheral edema. MUSCULOSKELETAL: She has tenderness at the A1 kaye of the index, middle, ring , and small finger and positive median nerve compression test. Decreased sensation in the median nerve distribution and she cannot make a full fist. IMPRESSION: Left carpal tunnel syndrome, index, middle, ring, and small finger triggering. PLAN: Plan is for left carpal tunnel release, index, middle, ring, and small finger trigger release. Surgical procedure, risks, and benefits were explained to the patient today and she agrees to proceed. We will see her back in followup approximately 10 days postop. [id number]/[facility] #: [id number] MADELINE
[~2018-05-28 10:49] MED LIST changes: -Acetaminophen TAB* 325 MG PO PRN; +Famotidine IV* 10 MG/ML 2 ML (20 mg) IV ONE; +Famotidine IV* 10 MG/ML 2 ML (20 mg) ONE
[2018-05-28] MEDS ORDERED: Lidocaine 1% INJ* 10 MG/ML 30 ML SDV ONE (11:19)
[2018-05-28] MEDS ORDERED: Midazolam* 1 MG/ML 5 ML VIAL (5 MG) ONE (11:51)
[2018-05-28] MEDS ORDERED: fentaNYL* 50 MCG/ML 2 ML VIAL (100 MCG VIAL) ONE (11:51)
[2018-05-28] MEDS ORDERED: Naloxone* 0.4 MG/ML 1 ML VIAL IV PRN (11:59)
[2018-05-28] MEDS ORDERED: Acetaminophen TAB* 325 MG PO PRN (11:59)
[2018-05-28] MEDS ORDERED: DiMENhydriNATE IV* 50 MG/ML VIAL IV PUSH PRN (11:59)
[2018-05-28] MEDS ORDERED: Ketorolac INJ* 30 MG/ML 1 ML VIAL ONE (12:18)
[2018-05-28] MEDS ORDERED: Propofol* 10 MG/ML 20 ML BTL IV PUSH ONE (12:18)
[2018-05-28] MEDS ORDERED: Lidocaine 2% PF * 5 ML VIAL ONE (12:18)
[2018-05-28] MEDS ORDERED: Ondansetron INJ* 2 MG/ML VIAL ONE (12:18)
[2018-05-28 13:03] VITALS: BP 122/72
--- NOTE | 2018-05-29 01:54 | OP ---
CC: Dr. Raya OPERATIVE NOTE: DATE OF OPERATION: 05/28/18 DATE OF : 55 SURGEON: Lorene Raya MD SENIOR APPLICATION SECURITY CONSULTANT: KEILA Flores ANESTHESIA: Local MAC. PRE-OP DIAGNOSES: 1. Trigger fingers of the left index, middle, ring, and small fingers. 2. Left carpal tunnel syndrome. POST-OP DIAGNOSES: 1. Trigger fingers of the left index, middle, ring, and small fingers. 2. Left carpal tunnel syndrome. OPERATIVE PROCEDURE: Left carpal tunnel release and trigger release of the left index, middle, ring, and small fingers. ESTIMATED BLOOD LOSS: Zero. TOURNIQUET TIME: About 20 minutes. INDICATIONS: Ange is a 63-year-old female with diabetes. She has had multiple trigger fingers rele ased on the right hand and carpal tunnel released. She presents now for left carpal tunnel release a nd trigger releases of the index, middle, ring, and small finger on the left. DESCRIPTION OF PROCEDURE: The patient was brought to the operating room, was given a sedation anesth etic and a total of 20 cc 1% plain lidocaine injected in the palm of her left hand. Skin of her left hand and forearm was prepped and draped in the usual sterile fashion. The hand and forearm were exs anguinated and the tourniquet elevated to 250 mmHg. A longitudinal incision was made in the palm in line with the ring finger. We dissected sharply through the subcutaneous tissue down to the transver se carpal ligament. The ligament was divided sharply with a knife and then more proximally with the scissors. The nerve was dissected free from the surrounding tissue and there was an area of signific ant compression at the mid portion of the ligament. The wound was irrigated and the skin edges reapp roximated with 4-0 nylon suture. Next, an incision was made centered over the A1 kaye of the index and middle fingers and we dissected bluntly through the subcutaneous tissue down to the A1 pulleys. Each was incised longitudinally and there was abundant tenosynovitis surrounding the flexor tendons, which was debrided. The wound was irrigated and the skin edges were reapproximated with 4-0 nylon s uture. A third incision was then made centered between the ring and small finger A1 pulleys and we di ssected bluntly through the subcutaneous tissue down to the A1 pulleys. The pulleys were then sized longitudinally and here there was a minimal amount of tenosynovitis surrounding the flexor tendons. There was no abrasion of the tendons. The wound was irrigated and the skin edges reapproximated with 4-0 nylon suture. The wounds were dressed with Xeroform, 4x4, Webril, and an Saad wrap. The patient tolerated the procedure well and was brought to the recovery room in good condition. [id number]/[facility] #: [id number]
== END 2018-05-28 13:28 | disposition home or self-care (01) ==
LOC: OREAST 10:49
PROVIDERS: ATTEND Orthopaedic Surgery
DX: G56.02 Carpal tunnel syndrome, left upper limb (principal); M65.322 Trigger finger, left index finger; M65.332 Trigger finger, left middle finger; M65.342 Trigger finger, left ring finger; M65.352 Trigger finger, left little finger; E11.9 Type 2 diabetes mellitus without complications; Z79.4 Long term (current) use of insulin; Z79.84 Long term (current) use of oral hypoglycemic drugs; I10 Essential (primary) hypertension; F41.8 Other specified anxiety disorders; Z87.891 Personal history of nicotine dependence; J45.909 Unspecified asthma, uncomplicated; E03.9 Hypothyroidism, unspecified; M06.9 Rheumatoid arthritis, unspecified
CPT/HCPCS: J1885; J2250; J2405; J2704; J3010

== ENCOUNTER 2019-02-16 12:57 | Emergency (ER) | payer BC ==
[2019-02-16 13:57] VITALS: BP 114/62
[2019-02-16] MEDS ORDERED: predniSONE TAB* 20 MG PO ONE (14:32)
[2019-02-16] MEDS ORDERED: Albuterol 2.5 MG/3 ML NEB.SOL* (0.083%) INH ONE (14:32)
[2019-02-16] MEDS ORDERED: Ipratropium 0.5MG/2.5ML NEB* 0.5 MG/2.5 ML NEB.SOLN INH ONE (14:32)
--- NOTE | 2019-02-16 14:32 | UC ---
Respiratory Complaint HPI - HPI Summary HPI Summary: 63 yo female with cough x 1 week sinus pressure and pain nasal congestion productive cough wheezing she is an asthmatic and has used her inhaler no CP or SOB c/o right otatlgia and sore throat - History of Current Complaint Chief Complaint: UCRespiratory Stated Complaint: COUGH RESP ISSUE HEADACHE CHILLS Time Seen by Provider: 02/16/19 14:27 Hx Obtained From: Patient Onset/Duration: Gradual Onset Timing: Constant Severity Initially: Mild Severity Currently: Severe Pain Intensity: 10 Pain Scale Used: 0-10 Numeric Character: Cough: Productive Aggravating Factors: Nothing Alleviating Factors: Bronchodilator Associated Signs And Symptoms: Positive: Fever - leeroy, Chills, Wheezing, URI, Nasal Congestion, Sinus Discomfort - Allergies/Home Medications Allergies/Adverse Reactions: Allergies Allergy/AdvReac Type Severity Reaction Status Date / Time procaine Allergy Severe N/V, Verified 02/16/19 13:57 SYNCOPE contrast dyes Allergy Severe Hives Uncoded 02/16/19 13:57 PMH/Surg Hx/FS Hx/Imm Hx Previously Healthy: Yes Endocrine History: Diabetes Cardiovascular History: Hypertension Respiratory History: Asthma, Pneumonia - Surgical History Surgical History: Yes Surgery Procedure, Year, and Place: Cysts removed [place] [facility] [place] Left Knee L bone spurs removed [facility] [place]. Hysterectomy [facility]21 YEARS AGO. Cholecystectomy [facility] [place]. APPENDECTOMY age 14. RIGHT AND LEFT KNEE REPAIR OF CARTILAGE. Right Carpal Tunnel Release 2016 [facility]. Bilateral Cataract Extraction 2018 - Family History Known Family History: Positive: Cardiac Disease - FATHER HAD 10 MIs BEFORE PASSING AWAY, Hypertension, Diabetes - Social History Alcohol Use: Rare Substance Use Type: None Smoking Status (MU): Former Smoker Amount Used/How Often: 2 ppd for 25 years Length of Time of Smoking/Using Tobacco: 20 yrs Have You Smoked in the Last Year: No When Did the Patient Quit Smoking/Using Tobacco: 2004 - Immunization History Most Recent Influenza Vaccination: 2014 Most Recent Tetanus Shot: in the last 10 yrs Most Recent Pneumonia Vaccination: 3 yrs ago Review of Systems All Other Systems Reviewed And Are Negative: Yes Constitutional: Positive: Fever - leeroy, Chills Skin: Positive: Negative Eyes: Positive: Negative ENT: Positive: Sore Throat, Ear Ache, Nasal Discharge, Sinus Congestion, Sinus Pain/Tenderness Respiratory: Positive: Cough, Other - wheezing Cardiovascular: Positive: Negative Gastrointestinal: Positive: Negative Genitourinary: Positive: Negative Motor: Positive: Negative Neurovascular: Positive: Negative Musculoskeletal: Positive: Negative Neurological: Positive: Negative Psychological: Positive: Negative Physical Exam Triage Information Reviewed: Yes Appearance: Well-Appearing, No Pain Distress, Well-Nourished Vital Signs: Initial Vital Signs Temp 97.1 F 02/16/19 13:53 Pulse 96 02/16/19 13:53 Resp 18 02/16/19 13:53 BP 114/62 02/16/19 13:53 Pulse Ox 97 02/16/19 13:53 Vital Signs Reviewed: Yes Eyes: Positive: Conjunctiva Clear ENT: Positive: Hearing grossly normal, Pharyngeal erythema, Nasal congestion, Nasal drainage, TM bulging - R, Sinus tenderness, Uvula midline. Negative: Tonsillar swelling, Tonsillar exudate, Trismus, Muffled voice, Hoarse voice, Dental tenderness Dental Exam: Normal Neck: Positive: Supple, Nontender, No Lymphadenopathy Respiratory: Positive: No respiratory distress, No accessory muscle use, Crackles Cardiovascular: Positive: RRR, No Murmur Musculoskeletal: Positive: ROM Intact, No Edema Neurological: Positive: Alert Psychological Exam: Normal Skin Exam: Normal Re-Evaluation - Re-Evaluation First Eval Re-Evaluation Time: 15:16 Change: Improved - lungs clear Respiratory Course/Dx - Differential Dx/Diagnosis Provider Diagnosis: Acute bronchitis with bronchospasm, Rhinosinusitis Discharge - Sign-Out/Discharge Documenting (check all that apply): Patient Departure All imaging exams completed and their final reports reviewed: No Studies - Discharge Plan Condition: Stable Disposition: HOME Prescriptions: Azithromycin TAB* [Zithromax TAB*] 250 mg PO DAILY #6 tab predniSONE [Deltasone 20 MG TAB] 20 mg PO DAILY 4 Days #4 tab Referrals: Arianna Cain MD [Primary Care Provider] - 5 Days (recheck next week) Additional Instructions: use your rescue inhaler as directed - Billing Disposition and Condition Condition: STABLE Disposition: Home
== END 2019-02-16 15:30 | disposition home or self-care (01) ==
LOC: UCEAST 12:57
DX: J20.9 Acute bronchitis, unspecified (principal); J32.9 Chronic sinusitis, unspecified; Z88.4 Allergy status to anesthetic agent; Z91.041 Radiographic dye allergy status; E11.9 Type 2 diabetes mellitus without complications; I10 Essential (primary) hypertension; J45.909 Unspecified asthma, uncomplicated; Z87.891 Personal history of nicotine dependence
CPT/HCPCS: 99212; G0463; J7512

== ENCOUNTER 2022-03-27 08:50 | Observation (INO) ==
[2022-03-27] MEDS ORDERED: Albuterol/Ipratropium NEB.SOL (2.5/0.5 MG) 3 ML NEB.SOLN INH ONE (09:13)
[2022-03-27] MEDS ORDERED: methylPREDNISolone SOD SUCC 125 mg 2 ML VIAL IV ONE (09:13)
[2022-03-27 09:53] LABS: ABS Eosinophils 0.1 10^3/ul (0-0.6); ABS Lymphocytes 2.6 10^3/ul (1.0-4.8); ABS Monocytes 1.2 10^3/ul (0-0.8); ABS Neutrophils 5.8 10^3/ul (1.5-7.7); Eosinophil % 1.1 %; Hematocrit 34 % (35-47); Hemoglobin 11.7 g/dL (12.0-16.0); Lymphocyte % 26.8 %; Mean Corpuscular HGB Conc 34 g/dL (31-36); Mean Corpuscular Hemoglobin 30 pg (27-31); Mean Corpuscular Volume 88 fL (80-97); Mean Platelet Volume 7.5 fL (7.4-10.4); Platelet Count 328 10^3/uL (150-450); Red Cell Distribution Width 14 % (10-15); White Blood Count 9.7 10^3/uL (3.5-10.8)
[2022-03-27] MEDS ORDERED: Sterile Water for Inj 10 ML ONE (09:58)
[2022-03-27 10:04] LABS: Activated Partial Thrombo Time 28.1 seconds (26.0-38.0); INR 1.06 (0.86-1.15)
[2022-03-27 10:20] LABS: Albumin 4.3 g/dL (3.2-5.2); Albumin/Globulin Ratio 1.7 (1-3); Calcium 9.1 mg/dL (8.6-10.3); Globulin 2.6 g/dL (2-4); Potassium 3.6 mmol/L (3.5-5.0); Total Bilirubin 0.3 mg/dL (0.2-1.0); Total Protein 6.9 g/dL (6.4-8.9); eGFR CKD-EPI 90.6 (>60)
[2022-03-27 11:09] LABS: High Sensitivity Troponin 1 Hr 7 pg/mL (<15)
[2022-03-27] MEDS ORDERED: Albuterol HFA INHALER 8 gm MDI INH PRN (16:22)
[2022-03-27] MEDS ORDERED: Enoxaparin 40 MG/0.4 ML SYR SUBCUT SCH (17:00)
[2022-03-27] MEDS ORDERED: cefTRIAXone 1 gm/50 mL D5W 1 GM/50 ML BAG IV ONE (17:15)
[2022-03-27] MEDS ORDERED: Azithromycin 500 mg/250 mL NS IVPB ONE (18:00)
[2022-03-27] MEDS: methylPREDNISolone SOD SUCC 40 mg/ml 1 ml VIAL IV SCH (18:12)
[2022-03-27 18:21] LABS: Magnesium 1.7 mg/dL (1.9-2.7)
[2022-03-27] MEDS ORDERED: Dextrose 50% Syringe 50 ml 25 GM/50 ML SYRINGE IV PUSH PRN (19:50)
[2022-03-27] MEDS: Insulin GLARGINE 100 un/ml 10 ml VIAL SUBCUT SCH (20:33)
[2022-03-27] MEDS ORDERED: Magnesium Sulfate IV 3 GM in NS 0.9% 100 ml BAG 100 ML IVPB ONE (21:08)
[2022-03-27] MEDS: Albuterol/Ipratropium NEB.SOL (2.5/0.5 MG) 3 ML NEB.SOLN INH SCH (21:16)
[2022-03-27] MEDS ORDERED: Magnesium Sulfate 1 GM IV 1 GM/100 ML BAG IV ONE (21:30)
[2022-03-27] MEDS ORDERED: Magnesium Sulfate 2 GM IV (Premix) IVPB ONE (22:00)
[2022-03-27] MEDS: Gemfibrozil 600 mg PO SCH (22:02)
[2022-03-27 22:15] LABS: C Reactive Protein 5.77 mg/L (<8.01)
[2022-03-28] MEDS: methylPREDNISolone SOD SUCC 40 mg/ml 1 ml VIAL IV SCH ×2 (01:03→08:27)
[2022-03-28 03:47] LABS: Urine Appearance Clear; Urine Bilirubin Negative (Negative); Urine Blood Negative (Negative); Urine Color Straw; Urine Glucose 3+(>=500 mg/dL) (Negative); Urine Ketones Negative (Negative); Urine Nitrite Negative (Negative); Urine Protein Negative (Negative); Urine Specific Gravity 1.009 (1.002-1.030); Urine Urobilinogen Negative (Negative)
[2022-03-28 05:03] LABS: ABS Lymphocytes 1.2 10^3/ul (1.0-4.8); ABS Monocytes 0.5 10^3/ul (0-0.8); ABS Neutrophils 10.1 10^3/ul (1.5-7.7); Hematocrit 35 % (35-47); Hemoglobin 12.2 g/dL (12.0-16.0); Lymphocyte % 10.1 %; Mean Corpuscular HGB Conc 35 g/dL (31-36); Mean Corpuscular Hemoglobin 30 pg (27-31); Mean Corpuscular Volume 88 fL (80-97); Mean Platelet Volume 7.8 fL (7.4-10.4); Platelet Count 326 10^3/uL (150-450); Red Blood Count 4.02 10^6 /uL (3.70-4.87); Red Cell Distribution Width 14 % (10-15); White Blood Count 11.9 10^3/uL (3.5-10.8)
[2022-03-28 05:32] LABS: Calcium 9.5 mg/dL (8.6-10.3); Magnesium 2.4 mg/dL (1.9-2.7); Potassium 4.1 mmol/L (3.5-5.0); eGFR CKD-EPI 96.7 (>60)
[2022-03-28] MEDS: Albuterol/Ipratropium NEB.SOL (2.5/0.5 MG) 3 ML NEB.SOLN INH SCH (07:00)
[2022-03-28] MEDS: Insulin GLARGINE 100 un/ml 10 ml VIAL SUBCUT SCH (08:26)
[2022-03-28] MEDS: Gemfibrozil 600 mg PO SCH (08:28)
[2022-03-28] MEDS ORDERED: Multivitamins/Minerals TAB PO SCH (09:00)
[2022-03-28] MEDS ORDERED: Cholecalciferol (VIT D3) 1,000 unit TAB PO SCH (09:00)
[2022-03-28] MEDS ORDERED: DULoxetine DR 30 mg CAP PO SCH (09:00)
[2022-03-28] MEDS ORDERED: Albuterol/Ipratropium NEB.SOL (2.5/0.5 MG) 3 ML NEB.SOLN INH PRN (09:51)
[2022-03-28 14:55] VITALS: BP 139/69
[2022-03-28] MEDS ORDERED: cefTRIAXone 1 gm/50 mL D5W 1 GM/50 ML BAG IV SCH (18:00)
[2022-03-28] MEDS ORDERED: Azithromycin 500 mg/250 ml NS 500 MG/250 ML BAG IVPB SCH (20:30)
== END 2022-03-28 15:25 | disposition home or self-care (01) ==
LOC: EDHOLD 08:50 → ED 08:50 → SUATTDRO 16:50 → EDHOLD 18:30 → MED 18:49
PROVIDERS: ADMIT Internal Medicine; ATTEND Hospitalist